=== PATIENT | male | born 1990 | race Caucasian/White ===

== ENCOUNTER 2022-11-02 10:48 | Inpatient (IN) ==
[2022-11-02 12:39] LABS: Hematocrit 37.2 % (38-53); Hemoglobin 12.9 g/dL (13.2-16.3); Mean Corpuscular Hemoglobin 29.9 pg (27-33); Mean Corpuscular Hgb Conc 34.7 g/dL (31-36); Mean Corpuscular Volume 86.2 fL (80-97); Mean Platelet Volume 7.5 fL (7.5-11.2); Platelet Count 525 10^3/uL (150-450); Red Blood Count 4.32 10^6/uL (4.06-5.63); Red Cell Distribution Width 13.3 % (12-17); White Blood Count 22.1 10^3/uL (3.6-10.2)
[2022-11-02 12:46] LABS: INR 1.31 (0.83-1.13)
[2022-11-02 12:58] LABS: ALT 57 U/L (7-52); AST 34 U/L (13-39); Albumin 4.3 g/dL (3.2-5.2); Albumin/Globulin Ratio 1.1 (1-3); Alkaline Phosphatase 83 U/L (35-149); Anion Gap 12 mmol/L (2-16); Blood Urea Nitrogen 9 mg/dL (6-24); C Reactive Protein 281.14 mg/L (<8.01); CO2 Carbon Dioxide 28 mmol/L (22-32); Calcium 9.5 mg/dL (8.6-10.3); Chloride 92 mmol/L (101-111); Creatinine, Serum 0.89 mg/dL (0.67-1.17); Globulin 3.8 g/dL (2-4); Glucose 116 mg/dL (70-100); Lipase < 10 U/L (11.0-82.0); Potassium 3.2 mmol/L (3.5-5.0); Sodium 132 mmol/L (135-145); Total Protein 8.1 g/dL (6.4-8.9); eGFR CKD-EPI 118.2 (>60)
[2022-11-02 13:06] LABS: ABS Basophils 0.1 10^3/uL (0.0-0.1); ABS Monocytes 2.1 10^3/uL (0.0-1.1); ABS Neutrophils 18.8 10^3/uL (1.5-7.6); Lymphocyte % 4.6 %
[2022-11-02] MEDS ORDERED: Potassium Chlor 20 meq TAB.ER PO ONE (13:30)
[2022-11-02] MEDS ORDERED: Iohexol 350 (CONTRAST) 500 ML MDV IV ONE (14:10)
[2022-11-02 14:29] LABS: Urine Appearance Clear; Urine Bilirubin Negative (Negative); Urine Blood Negative (Negative); Urine Color Yellow; Urine Glucose Negative (Negative); Urine Ketones 1+ (Negative); Urine Nitrite Negative (Negative); Urine Protein Negative (Negative); Urine Specific Gravity 1.008 (1.002-1.030); Urine Urobilinogen Negative (Negative)
[2022-11-02] MEDS ORDERED: Piperacillin/Tazobac 3.375 BAG 3.375 GM/100 ML BAG IV ONE (15:04)
[2022-11-02] MEDS ORDERED: Acetaminophen IV 1 GM/100ML 1,000 MG/100 ML BAG IV ONE (15:31)
[2022-11-02] MEDS ORDERED: Lactated Ringers 1000 ml BAG 1,000 ML IV ONE (15:31)
[2022-11-02] MEDS ORDERED: HYDROmorphone 1 MG/1 ML SYRINGE IV SLOW PU PRN (16:16)
[2022-11-02] MEDS ORDERED: Acetaminophen IV 1 GM/100ML 1,000 MG/100 ML BAG IV SCH (16:30)
[2022-11-02] MEDS: cefTRIAXone 1 gm/50 mL D5W 1 GM/50 ML BAG IV SCH (18:37)
[2022-11-02] MEDS: Lactated Ringers 1000 ml BAG 1,000 ML IV SCH (19:39)
[2022-11-02] MEDS ORDERED: ceFAZolin 2 GM in NS PREMIX 2 GM/100 ML BAG IVPB SCH (20:00)
[2022-11-02] MEDS ORDERED: metroNIDAZOLE IV 500 MG/100ML 500 MG/100 ML BAG IVPB SCH (20:00)
[2022-11-02] MEDS: metroNIDAZOLE IV 500 MG/100ML 500 MG/100 ML BAG IVPB SCH (22:07)
[2022-11-02] MEDS: Acetaminophen IV 1 GM/100ML 1,000 MG/100 ML BAG IV SCH (23:22)
[2022-11-03] MEDS: metroNIDAZOLE IV 500 MG/100ML 500 MG/100 ML BAG IVPB SCH ×4 (03:13→21:15)
[2022-11-03] MEDS: Lactated Ringers 1000 ml BAG 1,000 ML IV SCH ×2 (03:15→13:42)
[2022-11-03] MEDS: Acetaminophen IV 1 GM/100ML 1,000 MG/100 ML BAG IV SCH ×3 (05:26→22:30)
[2022-11-03 07:47] LABS: ABS Basophils 0.1 10^3/uL (0.0-0.1); ABS Lymphocytes 0.8 10^3/uL (1.0-4.8); ABS Monocytes 1.7 10^3/uL (0.0-1.1); ABS Neutrophils 16.2 10^3/uL (1.5-7.6); Eosinophil % 0.1 %; Lymphocyte % 4.5 %
[2022-11-03 08:01] LABS: Anion Gap 12 mmol/L (2-16); Blood Urea Nitrogen 8 mg/dL (6-24); CO2 Carbon Dioxide 27 mmol/L (22-32); Calcium 8.7 mg/dL (8.6-10.3); Chloride 99 mmol/L (101-111); Creatinine, Serum 0.81 mg/dL (0.67-1.17); Glucose 99 mg/dL (70-100); Potassium 3.4 mmol/L (3.5-5.0); Sodium 138 mmol/L (135-145); eGFR CKD-EPI 121.6 (>60)
[2022-11-03 08:02] LABS: Hematocrit 36.4 % (38-53); Hemoglobin 12.7 g/dL (13.2-16.3); Mean Corpuscular Hgb Conc 34.8 g/dL (31-36); Mean Corpuscular Volume 86.3 fL (80-97); Mean Platelet Volume 7.4 fL (7.5-11.2); Platelet Count 516 10^3/uL (150-450); Red Blood Count 4.22 10^6/uL (4.06-5.63); Red Cell Distribution Width 13.3 % (12-17); White Blood Count 18.9 10^3/uL (3.6-10.2)
[2022-11-03 08:18] LABS: CRP High Sensitivity > 80.00 mg/L (<2.00)
[2022-11-03] MEDS ORDERED: KCL 20 MEQ/100 ML IVPREMIX 20 MEQ/100 ML BAG IV ONE (10:45)
[2022-11-03 11:13] LABS: C Reactive Protein 261.34 mg/L (<8.01)
[2022-11-03] MEDS: cefTRIAXone 1 gm/50 mL D5W 1 GM/50 ML BAG IV SCH (17:37)
[2022-11-04] MEDS: Lactated Ringers 1000 ml BAG 1,000 ML IV SCH ×3 (00:46→19:26)
[2022-11-04] MEDS: metroNIDAZOLE IV 500 MG/100ML 500 MG/100 ML BAG IVPB SCH ×4 (02:49→20:43)
[2022-11-04] MEDS: Acetaminophen IV 1 GM/100ML 1,000 MG/100 ML BAG IV SCH ×3 (06:12→22:13)
[2022-11-04 07:20] LABS: ABS Basophils 0.1 10^3/uL (0.0-0.1); ABS Eosinophils 0.1 10^3/uL (0.0-0.5); ABS Lymphocytes 1.1 10^3/uL (1.0-4.8); ABS Monocytes 1.3 10^3/uL (0.0-1.1); ABS Neutrophils 12.6 10^3/uL (1.5-7.6); ABS Nucleated RBC 0.01 10^3/ul; Eosinophil % 0.4 %; Hematocrit 35.7 % (38-53); Hemoglobin 12.2 g/dL (13.2-16.3); Lymphocyte % 7.5 %; Mean Corpuscular Hemoglobin 29.5 pg (27-33); Mean Corpuscular Hgb Conc 34.1 g/dL (31-36); Mean Corpuscular Volume 86.6 fL (80-97); Mean Platelet Volume 7.1 fL (7.5-11.2); Nucleated Red Blood Cells % 0.1 /100 WBC (0.0-0.4); Platelet Count 513 10^3/uL (150-450); Red Blood Count 4.12 10^6/uL (4.06-5.63); Red Cell Distribution Width 13.1 % (12-17); White Blood Count 15.2 10^3/uL (3.6-10.2)
[2022-11-04 07:37] LABS: Calcium 8.5 mg/dL (8.6-10.3); Creatinine, Serum 0.75 mg/dL (0.67-1.17); Magnesium 1.8 mg/dL (1.9-2.7); Potassium 3.3 mmol/L (3.5-5.0); eGFR CKD-EPI 124.5 (>60)
[2022-11-04] MEDS ORDERED: Potassium Chlor 20 meq TAB.ER PO ONE (08:50)
[2022-11-04] MEDS ORDERED: KCL 20 MEQ/100 ML IVPREMIX 20 MEQ/100 ML BAG IV ONE (08:51)
[2022-11-04] MEDS ORDERED: Magnesium Sulfate 2 gm BAG 2 GM/50 ML BAG IVPB ONE (08:52)
[2022-11-04] MEDS: cefTRIAXone 1 gm/50 mL D5W 1 GM/50 ML BAG IV SCH (18:03)
[2022-11-05] MEDS: metroNIDAZOLE IV 500 MG/100ML 500 MG/100 ML BAG IVPB SCH ×4 (02:56→22:33)
[2022-11-05] MEDS: Lactated Ringers 1000 ml BAG 1,000 ML IV SCH ×2 (03:31→12:42)
[2022-11-05] MEDS: Ondansetron 4 mg VIAL 2 MG/ML 2 ml VIAL IV PRN (04:41)
[2022-11-05] MEDS: Acetaminophen IV 1 GM/100ML 1,000 MG/100 ML BAG IV SCH ×3 (06:16→22:07)
[2022-11-05 07:17] LABS: ABS Basophils 0.3 10^3/uL (0.0-0.1); ABS Eosinophils 0.3 10^3/uL (0.0-0.5); ABS Lymphocytes 1.1 10^3/uL (1.0-4.8); ABS Monocytes 0.8 10^3/uL (0.0-1.1); ABS Neutrophils 6.1 10^3/uL (1.5-7.6); ABS Nucleated RBC 0.01 10^3/ul; Hematocrit 37.1 % (38-53); Lymphocyte % 12.4 %; Mean Corpuscular Hemoglobin 30.4 pg (27-33); Mean Corpuscular Hgb Conc 35.1 g/dL (31-36); Mean Corpuscular Volume 86.5 fL (80-97); Mean Platelet Volume 7.1 fL (7.5-11.2); Nucleated Red Blood Cells % 0.1 /100 WBC (0.0-0.4); Platelet Count 570 10^3/uL (150-450); Red Blood Count 4.29 10^6/uL (4.06-5.63); Red Cell Distribution Width 13.8 % (12-17); White Blood Count 8.5 10^3/uL (3.6-10.2)
[2022-11-05 07:37] LABS: C Reactive Protein 257.59 mg/L (<8.01); Calcium 8.1 mg/dL (8.6-10.3); Creatinine, Serum 0.67 mg/dL (0.67-1.17); Magnesium 1.8 mg/dL (1.9-2.7); Phosphorus 2.9 mg/dL (2.5-5.0); Potassium 3.3 mmol/L (3.5-5.0); eGFR CKD-EPI 128.8 (>60)
[2022-11-05] MEDS ORDERED: KCL 20 MEQ/100 ML IVPREMIX 20 MEQ/100 ML BAG IV ONE (09:50)
[2022-11-05] MEDS ORDERED: Magnesium Sulfate 2 gm BAG 2 GM/50 ML BAG IVPB ONE (09:52)
[2022-11-05] MEDS ORDERED: HYDROmorphone 0.5 MG/0.5 ML SYRINGE IV SLOW PU PRN (10:36)
[2022-11-05] MEDS: Potassium Chlor 20 meq TAB.ER PO SCH ×2 (12:38→20:12)
[2022-11-05] MEDS: cefTRIAXone 1 gm/50 mL D5W 1 GM/50 ML BAG IV SCH (20:15)
[2022-11-06] MEDS: Lactated Ringers 1000 ml BAG 1,000 ML IV SCH ×2 (00:25→09:06)
[2022-11-06] MEDS: Ondansetron 4 mg VIAL 2 MG/ML 2 ml VIAL IV PRN ×3 (00:27→22:14)
[2022-11-06] MEDS: metroNIDAZOLE IV 500 MG/100ML 500 MG/100 ML BAG IVPB SCH ×4 (02:50→21:42)
[2022-11-06] MEDS: Acetaminophen IV 1 GM/100ML 1,000 MG/100 ML BAG IV SCH ×3 (05:17→23:13)
[2022-11-06 05:44] LABS: Hematocrit 38.1 % (38-53); Hemoglobin 13.3 g/dL (13.2-16.3); Mean Corpuscular Hgb Conc 34.8 g/dL (31-36); Mean Corpuscular Volume 86.2 fL (80-97); Platelet Count 643 10^3/uL (150-450); Red Blood Count 4.42 10^6/uL (4.06-5.63); Red Cell Distribution Width 13.5 % (12-17); White Blood Count 7.5 10^3/uL (3.6-10.2)
[2022-11-06 06:05] LABS: ABS Basophils 0.1 10^3/uL (0.0-0.1); ABS Eosinophils 0.2 10^3/uL (0.0-0.5); ABS Monocytes 0.8 10^3/uL (0.0-1.1); ABS Neutrophils 4.4 10^3/uL (1.5-7.6); Eosinophil % 2.2 %; Nucleated Red Blood Cells % 0.1 /100 WBC (0.0-0.4)
[2022-11-06 06:06] LABS: Calcium 8.4 mg/dL (8.6-10.3); Creatinine, Serum 0.68 mg/dL (0.67-1.17); Potassium 3.4 mmol/L (3.5-5.0); eGFR CKD-EPI 128.2 (>60)
[2022-11-06] MEDS: Potassium Chlor 20 meq TAB.ER PO SCH ×2 (09:06→21:40)
[2022-11-06] MEDS ORDERED: Hemorrhoidal OINT 1 TUBE PR PRN (12:48)
[2022-11-06] MEDS: cefTRIAXone 1 gm/50 mL D5W 1 GM/50 ML BAG IV SCH (17:14)
[2022-11-06] MEDS: Calcium Carb (TUMS) 500 mg CHEW TAB PO PRN (22:20)
[2022-11-07] MEDS: Calcium Carb (TUMS) 500 mg CHEW TAB PO PRN ×3 (00:06→10:23)
[2022-11-07] MEDS: Ondansetron 4 mg VIAL 2 MG/ML 2 ml VIAL IV PRN ×2 (02:19→07:52)
[2022-11-07] MEDS: metroNIDAZOLE IV 500 MG/100ML 500 MG/100 ML BAG IVPB SCH ×3 (03:19→20:43)
[2022-11-07] MEDS ORDERED: Prochlorperazine 5 mg/ml 2 ml VIAL (10 mg) ONE (04:09)
[2022-11-07] MEDS ORDERED: Prochlorperazine 5 mg/ml 2 ml VIAL (10 mg) IV PRN (04:34)
[2022-11-07] MEDS: Acetaminophen IV 1 GM/100ML 1,000 MG/100 ML BAG IV SCH ×3 (06:12→23:05)
[2022-11-07 06:40] LABS: Calcium 8.3 mg/dL (8.6-10.3); Creatinine, Serum 0.77 mg/dL (0.67-1.17); Potassium 3.6 mmol/L (3.5-5.0); eGFR CKD-EPI 123.5 (>60)
[2022-11-07] MEDS ORDERED: Iohexol 300 (CONTRAST) 10 ML SDV IV ONE (08:17)
[2022-11-07] MEDS: Potassium Chlor 20 meq TAB.ER PO SCH ×2 (09:02→20:44)
[2022-11-07] MEDS: Lactated Ringers 1000 ml BAG 1,000 ML IV SCH (14:37)
[2022-11-07] MEDS: cefTRIAXone 1 gm/50 mL D5W 1 GM/50 ML BAG IV SCH (17:34)
[2022-11-07] MEDS ORDERED: Lactated Ringers 1000 ml BAG 1,000 ML IV SCH (17:39)
[2022-11-08] MEDS: Acetaminophen IV 1 GM/100ML 1,000 MG/100 ML BAG IV SCH ×3 (06:42→21:41)
[2022-11-08 06:47] LABS: Calcium 8.5 mg/dL (8.6-10.3); Creatinine, Serum 0.98 mg/dL (0.67-1.17); Magnesium 2.1 mg/dL (1.9-2.7); eGFR CKD-EPI 106.4 (>60)
[2022-11-08] MEDS: metroNIDAZOLE IV 500 MG/100ML 500 MG/100 ML BAG IVPB SCH ×2 (08:36→22:05)
[2022-11-08] MEDS: cefTRIAXone 1 gm/50 mL D5W 1 GM/50 ML BAG IV SCH (18:00)
[2022-11-09] MEDS: Acetaminophen IV 1 GM/100ML 1,000 MG/100 ML BAG IV SCH (06:37)
[2022-11-09 07:08] LABS: Calcium 9.3 mg/dL (8.6-10.3); Creatinine, Serum 0.9 mg/dL (0.67-1.17); Magnesium 2.2 mg/dL (1.9-2.7); Potassium 3.8 mmol/L (3.5-5.0); eGFR CKD-EPI 117.8 (>60)
[2022-11-09] MEDS: metroNIDAZOLE IV 500 MG/100ML 500 MG/100 ML BAG IVPB SCH (08:50)
== END 2022-11-09 11:20 | disposition home or self-care (01) | DRG 373 ==
LOC: ED 10:48 → EDHOLD 17:01 → SSU 20:03
PROVIDERS: ADMIT Surgery; ATTEND Surgery